=== PATIENT | male | born 1970 | race Caucasian/White ===

== ENCOUNTER 2018-06-07 12:43 | Inpatient (IN) | payer OTHER ==
[2018-06-07 13:48] LABS: ABNORMAL IP MESSAGE 1; HEMATOCRIT 21.1 % (42.0-52.0); HEMOGLOBIN 7.4 g/dl (14.0-18.0); MEAN CORPUSCULAR HGB CONC 35.1 g/dl (32.0-37.0); MEAN CORPUSCULAR VOLUME 88.3 fl (82.0-101.0); MEAN PLATELET VOLUME 10.5 fl (7.4-10.4); PLATELET COUNT 192 10^3/UL (140-415); POSITIVE DIFF @See below; RED BLOOD COUNT 2.39 10^6/ul (4.70-6.10)
[2018-06-07 13:48] LABS: WHITE BLOOD COUNT 6.8 10^3/ul (4.8-10.8)
[2018-06-07 13:50] LABS: INR 1.05; PROTIME 13.8 Sec (11.9-14.9); PT RATIO 1.1
[2018-06-07] MEDS: SOD CHLORIDE 0.9% 1,000 ML IV (13:50)
[2018-06-07] MEDS: LORAZEPAM 2 MG INJ IV (13:50)
[2018-06-07] MEDS: PANTOPRAZOLE 40 MG INJ IV (13:50)
[2018-06-07 13:51] LABS: PARTIAL THROMBOPLASTIN TIME 27.7 Sec (23.0-35.0)
[2018-06-07 13:55] LABS: ADD MAN DIFF? YES; ALANINE AMINOTRANSFERASE 23 IU/L (13-69); ALBUMIN 3.4 g/dl (3.3-4.9); ALBUMIN/GLOBULIN RATIO 1.41; ALKALINE PHOSPHATASE 49 IU/L (42-121); ANION GAP 14 (8-16); ASPARTATE AMINO TRANSFERASE 28 IU/L (15-46); BILIRUBIN,INDIRECT 0.1 mg/dl (0-1.1); BILIRUBIN,TOTAL 0.1 mg/dl (0.2-1.3); BLOOD UREA NITROGEN 35 mg/dl (7-20); CALCIUM 8.1 mg/dl (8.4-10.2); CARBON DIOXIDE 22 mmol/L (21-31); CHLORIDE 104 mmol/L (97-110); CREATININE 1.19 mg/dl (0.61-1.24); GLUCOSE 120 mg/dl (70-220); LIPASE 175 U/L (23-300); POTASSIUM 3.5 mmol/L (3.5-5.1); SODIUM 136 mmol/L (135-144); TOTAL PROTEIN 5.8 g/dl (6.1-8.1)
[2018-06-07 14:06] LABS: TROPONIN-I < 0.012 ng/ml (0.000-0.120)
[2018-06-07 14:28] LABS: ANISOCYTOSIS 1+ (0-0); BAND NEUTROPHILS #M 0.8 10^3/ul (0.0-0.6); BAND NEUTROPHILS % (M) 12 % (0-4); BASOPHILS % (M) 1 % (0-2); EOSINOPHILS % (M) 1 % (0-7); GIANT THROMBO% (M) 2 % (0-0); LYMPHOCYTES #M 1.8 10^3/ul (0.8-2.9); LYMPHOCYTES % (M) 27 % (15-51); METAMYELOCYTES #M 0.2 10^3/ul (0.0-0.0); METAMYELOCYTES %M 4 % (0-0); MONOCYTES % (M) 1 % (0-11); MYELOCYTES #M 0.4 10^3/ul (0.0-0.0); MYELOCYTES % (M) 6 % (0-0); PLATELET ESTIMATE NORMAL; PLATELET MORPHOLOGY COMMENT @See below; POLYCHROMASIA 1+ (0-0); SEG NEUT #M 3.3 10^3/ul (1.6-7.5); SEGMENTED NEUTROPHILS (M) % 48 % (39-77); SMUDGE%M 33 % (0-0)
[2018-06-07] MEDS: OCTREOTIDE 50 MCG in SOD CHLORIDE 0.9% 25 ML IVPB (14:30)
[2018-06-07] MEDS: SOD CHLORIDE 0.9% 250 ML IV* (16:58)
[2018-06-07] MEDS ORDERED: ONDANSETRON 4 MG INJ IV (17:00)
[2018-06-07] MEDS ORDERED: DOCUSATE SODIUM 100 MG CAP PO (17:00)
[2018-06-07] MEDS ORDERED: NACL 0.9% 3 ML SYG IV (17:00)
[2018-06-07] MEDS ORDERED: GLUCAGON 1 MG INJ IM (17:30)
[2018-06-07] MEDS ORDERED: GLUCOSE GEL 15 GRAM TUBE BUCCAL (17:30)
[2018-06-07] MEDS ORDERED: DEXTROSE 50% 50 ML SYRINGE IV ×2 (17:30)
[2018-06-07] MEDS ORDERED: GLUCOSE GEL 15 GRAM TUBE PO ×2 (17:30)
[2018-06-07] MEDS ORDERED: hydrALAzine 20 MG INJ IV (17:30)
[2018-06-07] MEDS: D5-NS + KCL 20 MEQ 1,000 ML IV (19:23)
[2018-06-07] MEDS: PANTOPRAZOLE IV 80 MG in SOD CHLORIDE 0.9% 100 ML IV (19:23)
[2018-06-07] MEDS: INSULIN ASPART [NOVOLOG] 3 ML PEN SC (21:00)
[2018-06-08] MEDS: D5-NS + KCL 20 MEQ 1,000 ML IV ×3 (01:00→16:57)
[2018-06-08] MEDS: INSULIN ASPART [NOVOLOG] 3 ML PEN SC ×6 (01:00→20:47)
[2018-06-08] MEDS ORDERED: ACCU-CHEK XX (02:00)
[2018-06-08] MEDS: PANTOPRAZOLE IV 80 MG in SOD CHLORIDE 0.9% 100 ML IV ×3 (03:38→23:12)
[2018-06-08 05:17] LABS: WHITE BLOOD COUNT 5.8 10^3/ul (4.8-10.8)
[2018-06-08 05:17] LABS: ABNORMAL IP MESSAGE 1; HEMATOCRIT 21.8 % (42.0-52.0); HEMOGLOBIN 7.7 g/dl (14.0-18.0); MEAN CORPUSCULAR HEMOGLOBIN 31.2 pg (29.0-33.0); MEAN CORPUSCULAR HGB CONC 35.3 g/dl (32.0-37.0); MEAN CORPUSCULAR VOLUME 88.3 fl (82.0-101.0); MEAN PLATELET VOLUME 10.3 fl (7.4-10.4); PLATELET COUNT 148 10^3/UL (140-415); POSITIVE DIFF @See below; RED BLOOD COUNT 2.47 10^6/ul (4.70-6.10); RED CELL DISTRIBUTION WIDTH 13.7 % (11.5-14.5)
[2018-06-08 05:19] LABS: ADD MAN DIFF? YES
[2018-06-08 05:40] LABS: ANION GAP 9 (8-16); BLOOD UREA NITROGEN 20 mg/dl (7-20); CARBON DIOXIDE 25 mmol/L (21-31); CHLORIDE 108 mmol/L (97-110); CREATININE 1.09 mg/dl (0.61-1.24); GLUCOSE 114 mg/dl (70-220); MAGNESIUM 1.8 mg/dl (1.7-2.5); PHOSPHORUS 2.2 mg/dl (2.5-4.9); POTASSIUM 3.6 mmol/L (3.5-5.1); SODIUM 138 mmol/L (135-144)
[2018-06-08 06:54] LABS: ANISOCYTOSIS 1+ (0-0); BAND NEUTROPHILS #M 0.4 10^3/ul (0.0-0.6); BAND NEUTROPHILS % (M) 8 % (0-4); EOSINOPHILS % (M) 3 % (0-7); LYMPHOCYTES #M 0.8 10^3/ul (0.8-2.9); LYMPHOCYTES % (M) 15 % (15-51); METAMYELOCYTES %M 1 % (0-0); MICROCYTOSIS 1+ (0-0); MONOCYTE #M 0.4 10^3/ul (0.3-0.9); MONOCYTES % (M) 7 % (0-11); MYELOCYTES % (M) 1 % (0-0); PLATELET ESTIMATE NORMAL; REACTIVE LYMPHOCYTES% (M) 1 % (0-0); SEG NEUT #M 3.7 10^3/ul (1.6-7.5); SEGMENTED NEUTROPHILS (M) % 64 % (39-77); SMUDGE%M 10 % (0-0)
[2018-06-08 07:54] LABS: HEMOGLOBIN A1C 5.6 % (0-5.9)
[2018-06-08 13:50] LABS: IMMEDIATE SPIN CROSSMATCH 1 4
[2018-06-08 13:58] LABS: OCCULT BLOOD STOOL POSITIVE (NEGATIVE)
[2018-06-08] MEDS: SOD CHLORIDE 0.9% 250 ML IV* (14:15)
[2018-06-08] MEDS: SUCRALFATE (100 MG/ML) 10ML CUP PO ×4 (14:35→20:44)
[2018-06-09] MEDS: INSULIN ASPART [NOVOLOG] 3 ML PEN SC ×7 (01:00→20:08)
[2018-06-09] MEDS: D5-NS + KCL 20 MEQ 1,000 ML IV ×4 (01:06→20:58)
[2018-06-09 05:45] LABS: ADD MAN DIFF? NO
[2018-06-09 05:52] LABS: WHITE BLOOD COUNT 6.3 10^3/ul (4.8-10.8)
[2018-06-09 05:52] LABS: BASOPHILS % 0.3 % (0.0-2.0); EOSINOPHILS # 0.1 10^3/ul (0.0-0.5); EOSINOPHILS % 1.4 % (0.0-7.0); HEMATOCRIT 25.8 % (42.0-52.0); HEMOGLOBIN 8.8 g/dl (14.0-18.0); LYMPHOCYTES # 1.3 10^3/ul (0.8-2.9); LYMPHOCYTES % 21.1 % (15.0-51.0); MEAN CORPUSCULAR HEMOGLOBIN 30.3 pg (29.0-33.0); MEAN CORPUSCULAR HGB CONC 34.1 g/dl (32.0-37.0); MEAN PLATELET VOLUME 10.3 fl (7.4-10.4); MONOCYTE # 0.6 10^3/ul (0.3-0.9); NEUTROPHIL # 3.9 10^3/ul (1.6-7.5); NEUTROPHILS % 62.4 % (39.0-77.0); PLATELET COUNT 154 10^3/UL (140-415); RED CELL DISTRIBUTION WIDTH 14.1 % (11.5-14.5)
[2018-06-09 06:34] LABS: ANION GAP 10 (8-16); BLOOD UREA NITROGEN 10 mg/dl (7-20); CALCIUM 8.3 mg/dl (8.4-10.2); CARBON DIOXIDE 26 mmol/L (21-31); CHLORIDE 108 mmol/L (97-110); CREATININE 1.07 mg/dl (0.61-1.24); GLUCOSE 105 mg/dl (70-220); MAGNESIUM 1.6 mg/dl (1.7-2.5); PHOSPHORUS 2.5 mg/dl (2.5-4.9); POTASSIUM 3.6 mmol/L (3.5-5.1); SODIUM 140 mmol/L (135-144)
[2018-06-09] MEDS: SUCRALFATE (100 MG/ML) 10ML CUP PO ×5 (08:10→20:08)
[2018-06-09] MEDS: PANTOPRAZOLE IV 80 MG in SOD CHLORIDE 0.9% 100 ML IV ×2 (09:43→19:00)
[2018-06-09] MEDS: MAGNESIUM SULFATE 2 GM/50 ML 50 ML IVPB (12:07)
[2018-06-09] MEDS: COLCHICINE 0.6 MG TAB PO (20:57)
[2018-06-10] MEDS: INSULIN ASPART [NOVOLOG] 3 ML PEN SC ×6 (01:00→20:20)
[2018-06-10] MEDS: morphine 2 MG INJ IV ×5 (01:08→22:15)
[2018-06-10] MEDS: ACCU-CHEK XX (01:12)
[2018-06-10] MEDS ORDERED: ACCU-CHEK XX (02:00)
[2018-06-10] MEDS: PANTOPRAZOLE IV 80 MG in SOD CHLORIDE 0.9% 100 ML IV ×2 (05:13→15:00)
[2018-06-10] MEDS: D5-NS + KCL 20 MEQ 1,000 ML IV ×2 (05:13→15:16)
[2018-06-10] MEDS: SUCRALFATE (100 MG/ML) 10ML CUP PO ×4 (08:33→20:18)
[2018-06-10] MEDS: COLCHICINE 0.6 MG TAB PO ×2 (08:33→16:51)
[2018-06-10] MEDS ORDERED: LIDOCAINE 2% (SDV) 5 ML INJ (13:48)
[2018-06-10] MEDS ORDERED: PROPOFOL 40 ML (13:48)
[2018-06-10] MEDS: predniSONE 20 MG TAB PO (16:51)
[2018-06-10] MEDS: PANTOPRAZOLE (EC) 40 MG TAB PO (17:29)
[2018-06-10] MEDS: HYDROCODONE/APAP (5/325) TAB PO (20:22)
[2018-06-11] MEDS: ACCU-CHEK XX (02:00)
[2018-06-11] MEDS: PANTOPRAZOLE (EC) 40 MG TAB PO (06:26)
[2018-06-11] MEDS: INSULIN ASPART [NOVOLOG] 3 ML PEN SC ×2 (07:30→11:30)
[2018-06-11 07:49] LABS: ANION GAP 14 (8-16); BLOOD UREA NITROGEN 16 mg/dl (7-20); CALCIUM 9.2 mg/dl (8.4-10.2); CARBON DIOXIDE 24 mmol/L (21-31); CHLORIDE 105 mmol/L (97-110); CREATININE 1.13 mg/dl (0.61-1.24); GLUCOSE 118 mg/dl (70-220); POTASSIUM 3.9 mmol/L (3.5-5.1); SODIUM 139 mmol/L (135-144)
[2018-06-11] MEDS: SUCRALFATE (100 MG/ML) 10ML CUP PO ×2 (08:58→13:14)
[2018-06-11] MEDS: COLCHICINE 0.6 MG TAB PO (08:58)
[2018-06-11] MEDS: predniSONE 20 MG TAB PO (08:58)
== END 2018-06-11 14:40 | disposition home or self-care (01) | DRG 378 ==
LOC: E/R 12:43 → PP2 14:33
PROVIDERS: Pediatrics Neonatal-Perinatal Medicine
PROC: 0DJ08ZZ Inspection of Upper Intestinal Tract, Via Natural or Artificial Opening Endoscopic (ICD-10-PCS; principal; 2018-06-10 13:20)
PROC: 30233N1 Transfusion of Nonautologous Red Blood Cells into Peripheral Vein, Percutaneous Approach (ICD-10-PCS; 2018-06-10 13:20)
DX: K92.2 Gastrointestinal hemorrhage, unspecified (principal); D62 Acute posthemorrhagic anemia; K25.9 Gastric ulcer, unspecified as acute or chronic, without hemorrhage or perforation; I10 Essential (primary) hypertension; E11.9 Type 2 diabetes mellitus without complications; M10.9 Gout, unspecified; Z79.84 Long term (current) use of oral hypoglycemic drugs; Z79.82 Long term (current) use of aspirin; Z79.1 Long term (current) use of non-steroidal anti-inflammatories (NSAID)
CPT/HCPCS: 36415; 36430; 71045; 80048; 80053; 82270; 82962; 83036; 83690; 83735; 84100; 84484; 85025; 85610; 85730; 86644; 86850; 86900; 86901; 86920; 90686; 93005; 96374; 96375; 99291-25